=== PATIENT | female | born 1950 | race Asian ===

== ENCOUNTER 2018-11-24 08:57 | Emergency (ER) | payer MEDICARE, OTHER ==
[~2018-11-24] VITALS: Ht 167.6 cm; Wt 65.0 kg
[2018-11-24 09:05] VITALS: BP 127/59; PULSE 64; RESP 20; Ht 167.6 cm; Wt 65.0 kg
[2018-11-24] MEDS ORDERED: IBUPROFEN 200 MG TAB PO ONE (10:30)
--- NOTE | 2018-11-24 11:35 | ERD ---
ER Documentation Chief Complaint Chief Complaint Complains of left ankle pain x 3 days HPI 68-year-old female patient with a past medical history of hypertension, diabetes, hyperlipidemia presents to ED complaining of left ankle and foot pain as she was walking outside and did not see an uneven curb, actually twisted her left ankle about 3 days ago. Patient describes as a sharp pain and rates it an 8 out of 10. Reports that she has been taking Tylenol at home with relief of her pain. Reports that walking, makes her pain worse. Denies any loss of sensation, loss of range of motion, nausea, vomiting, headache, dizziness, chest pain, shortness of breath. Denies any head or neck injuries. ROS All systems reviewed and are negative except as per history of present illness. Medications Home Meds Active Scripts Ibuprofen* (Motrin*) 400 Mg Tab, 400 MG PO Q6, #30 TAB take with food Prov:UMA BLOOM PA-C 11/24/18 Allergies Allergies: Coded Allergies: No Known Allergy (Unverified , 11/24/18) PMhx/Soc Hx Cardiac Disorders: Yes ( high cholesterol and htn) Hx Alcohol Use: No Hx Substance Use: No Hx Tobacco Use: No FmHx Family History: diabetes (Mother) Physical Exam Vitals Vital Signs Date Temp Pulse Resp B/P (MAP) Pulse Ox O2 O2 Flow FiO2 Time Delivery Rate 11/24/18 98.6 64 20 127/59 99 09:05 (81) Physical Exam Const: Gef-[id number]-icihmbgzc, well-nourished. In no acute distress. Head: Atraumatic, normocephalic Eyes: Normal Conjunctiva without injection ENT: Normal external ear, nose and mouth. Neck: Full range of motion. No meningismus. Resp: Clear to auscultation bilaterally. No wheezing, rhonchi, rales, or crackles. No accessory muscle use. No retractions. Cardio: Regular rate and rhythm, no murmurs Skin: No petechiae or rashes Back: No midline tenderness. No CVA tenderness. Ext: No cyanosis, or edema. Cap refill less than 2 seconds. Distal pulses intact bilaterally. Erythema and edema noted over the dorsal aspect of patient's left ankle and foot. Limited range of motion due to pain. Patient was still able to slightly plantar and dorsiflex her left foot. All other extremities have full range of motion. Neur: Awake and alert. Normal gait and coordination. Muscle strength 5/5. Sensation intact bilaterally. Psych: Normal Mood and Affect Results 24 hrs Current Medications Medications Dose Sig/Lorna Start Time Status Last (Trade) Ordered Route PRN Stop Time Admin Dose Reason Admin Ibuprofen 400 mg ONCE ONCE 11/24/18 DC 11/24/18 (Motrin) PO 10:30 11/24/18 10:46 10:31 Procedures/MDM 68-year-old female patient with no significant past medical history presents to ED complaining of left foot and ankle injury. Patient is afebrile and nontoxic- appearing. Patient given ibuprofen here in the ED with improvement of her symptoms and pain. Ice was provided to help patient with the swelling. IMPRESSION: 1. No acute osseous abnormality. 2. Osseous demineralization with mild degenerative changes. 3. Posterior and plantar calcaneal spurs. IMPRESSION: No acute osseous abnormality. Soft tissue swelling of the ankle. Patient is placed in an John wrap. Cane will be given to patient to help with ambulation. Splint Assessment: Neurovascularly intact pre and post splint placement with good fit. Patient likely sustained in a.m. ankles and foot sprain. Patient's extremity symptoms have stabilized while they have been evaluated in the department and are appropriate for outpatient follow up. No evidence of fractures, dislocations, compartment syndrome, neurologic injury, vascular injury, open joint, open fracture, tendon laceration, septic arthritis, osteomyelitis, DVT, foreign body, or other emergent conditions. Diagnosis: Ankle injury Discharge medications: Ibuprofen Follow up with primary care physician in 1-2 days. Instructed patient to return to the ED sooner for any worsening symptoms. Patient's questions were answered. Patient is hemodynamically stable. Patient understood and agreed with discharge plan. Patient discharged stable. Disclaimer: Inadvertent spelling and grammatical errors are likely due to EHR/dictation software use and do not reflect on the overall quality of patient care. Also, please note that the electronic time recorded on this note does not necessarily reflect the actual time of the patient encounter. Departure Diagnosis: Primary Impression: Ankle injury Encounter type: initial encounter Laterality: right Qualified Codes: S99.911A - Unspecified injury of right ankle, initial encounter Additional Impression: Foot injury Encounter type: initial encounter Laterality: right Qualified Codes: S99.921A - Unspecified injury of right foot, initial encounter Condition: Stable Referrals: [facility] YOU HAVE RECEIVED A MEDICAL SCREENING EXAM AND THE RESULTS INDICATE THAT YOU DO NOT HAVE A CONDITION THAT REQUIRES URGENT TREATMENT IN THE EMERGENCY DEPARTMENT. FURTHER EVALUATION AND TREATMENT OF YOUR CONDITION CAN WAIT UNTIL YOU ARE SEEN IN YOUR DOCTORS OFFICE WITHIN THE NEXT 1-2 DAYS. IT IS YOUR RESPONSIBILITY TO MAKE AN APPOINTMENT FOR FOLOW-UP CARE. IF YOU HAVE A PRIMARY DOCTOR --you should call your primary doctor and schedule an appointment IF YOU DO NOT HAVE A PRIMARY DOCTOR YOU CAN CALL OUR PHYSICIAN REFERRAL HOTLINE AT IF YOU CAN NOT AFFORD TO SEE A PHYSICIAN YOU CAN CHOSE FROM THE FOLLOWING [facility] [address]. [facility] [address] [facility]. [facility] [address] [facility] [facility] [address] [facility] [address] [facility]. [facility] [address] [facility]. [facility] YOU HAVE RECEIVED A MEDICAL SCREENING EXAM AND THE RESULTS INDICATE THAT YOU DO NOT HAVE A CONDITION THAT REQUIRES URGENT TREATMENT IN THE EMERGENCY DEPARTMENT. FURTHER EVALUATION AND TREATMENT OF YOUR CONDITION CAN WAIT UNTIL YOU ARE SEEN IN YOUR DOCTORS OFFICE WITHIN THE NEXT 1-2 DAYS. IT IS YOUR RESPONSIBILITY TO MAKE AN APPOINTMENT FOR FOLOW-UP CARE. IF YOU HAVE A PRIMARY DOCTOR --you should call your primary doctor and schedule and appointment IF YOU DO NOT HAVE A PRIMARY DOCTOR YOU CAN CALL OUR PHYSICIAN REFERRAL HOTLINE AT . IF YOU CAN NOT AFFORD TO SEE A PHYSICIAN YOU CAN CHOSE FROM THE FOLLOWING [facility] INSTITUTIONS: [facility] [address] [place] [address] [facility] [address] [place] [address] [facility] [address] [place] [address] [facility] URGENT C[facility]/SPECIALTIES Additional Instructions: Call your primary care doctor TOMORROW for an appointment during the next 2-3 days for a referral orthopedic physician. See the doctor sooner or return here if your condition worsens before your appointment time. UMA BLOOM PA-C Nov 24, 2018 11:35
[2018-11-24] MEDS ORDERED: IBUP-1561 PO (11:55)
== END 2018-11-24 13:35 | disposition left against medical advice (07) ==
LOC: FTE 08:57
DX: S99.922A Unspecified injury of left foot, initial encounter (principal); S99.912A Unspecified injury of left ankle, initial encounter; I10 Essential (primary) hypertension; E11.9 Type 2 diabetes mellitus without complications; X50.9XXA Other and unspecified overexertion or strenuous movements or postures, initial encounter; Y92.9 Unspecified place or not applicable
CPT/HCPCS: 73610